=== PATIENT | female | born 1980 | race Caucasian/White ===

== ENCOUNTER → 2016-06-19 | Day surgery (SDC) | payer OTHER ==
[~2016-06-19] VITALS: Ht 154.9 cm; Wt 82.2 kg
[~2016-06-19] MED LIST: ACETAMINOPHEN 1000 MG/100 ML VIAL IV SCH; CHLORHEXIDINE GLUCONATE 2 % 1 PACK (2 CLOTHS) TOPICAL PRN; DEXAMETHASONE SOD PHOS 4 MG/ML VIAL ONE; DICLOFENAC SODIUM 37.5 MG/ML VIAL IV PUSH ONE; FAMOTIDINE 20 MG/2 ML VIAL ONE; INSULIN HUMAN REGULAR 1,000 UNITS/10 ML VIAL SQ PRN; KETOROLAC TROMETHAMINE 60 MG/2 ML (IM) VIAL IM ONE; LACTATED RINGER'S 1000 ML IV PRN; METOCLOPRAMIDE HCL 10 MG/2 ML VIAL IV PRN; METOCLOPRAMIDE HCL 10 MG/2 ML VIAL ONE; METOPROLOL TARTRATE 25 MG TAB PO PRN; MIDAZOLAM HCL 2 MG/2 ML VIAL ONE; ONDANSETRON HCL 4 MG/2 ML VIAL IV PUSH ONE; OXYTOCIN 10 UNIT/ML AMP ONE; POVIDONE IODINE 5% (ANTISEPSIS KIT) 4 APPLICATIONS EACH NARE PRN; PROPOFOL 200 MG/20 ML AMP IV ONE; SODIUM CHLORID 0.9% 500 ML IV PRN; ceFAZolin 1,000 MG/NS 100 ML IV SCH; oxyCODONE/ACETAMINOPHEN 10 MG/325 MG TAB PO PRN
[2016-06-19 05:58] VITALS: BP 122/76; PULSE 67; RESP 18; TEMP 98.5; O2SAT 100
--- NOTE | 2016-06-19 06:29 | MH ---
cc: HILARIO MEEKS DATE OF ADMISSION: 06/19/16 06/19/2016 ADMISSION DIAGNOSIS Spontaneous 7-8 weeks gestation. HISTORY OF PRESENT ILLNESS The patient is a 36-year-old female para 1-0-1-1 with LMP of 04/13/16. She has had intermittent bleeding ranging from mild to moderate flow and beta titers have risen slowly. Ultrasound done on 06/11/2016 showed a viable at 6 weeks and 4 days. She did have intermittent bleeding. Follow-up scan on 06/18/2016 showed demise measuring 6-7 weeks. She is now admitted for D&C. PAST MEDICAL HISTORY/PAST SURGERIES 1. D&C for spontaneous , 2. Laparoscopy followed by laparotomy with removal of a right ovarian dermoid on 08/13/2016 MEDICATIONS Vitamins. ALLERGIES None. TRANSFUSIONS None. OBSTETRICAL HISTORY One vaginal delivery in 2002, male. Spontaneous 2016. 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 Alcohol, tobacco and drugs none. She is . FAMILY HISTORY Noncontributory PHYSICAL EXAMINATION GENERAL: Well-nourished well-developed female. VITAL SIGNS: Stable. HEENT: Exam is normal. CHEST: Clear. HEART: Regular rate. BREASTS: Symmetrical. ABDOMEN: Benign. PELVIC: Normal external genitalia and BUS. Vagina is normal. Cervix normal. Uterus is about 7-8 weeks' size. Adnexa nonpalpable. ASSESSMENT As above. PLAN She is now admitted for Dilation and curettage. While in the office, I explained the procedures, the risks and complications. The patient would like to proceed. MD DAGMAR Crain/ /9:10 PM /6:27 AM
[2016-06-19 08:25] VITALS: BP 109/58; PULSE 62; RESP 18; O2SAT 99
--- NOTE | 2016-06-19 13:55 | MP ---
cc: HILARIO MEEKS DATE OF SURGERY: 06/19/2016 PREOPERATIVE DIAGNOSIS: Spontaneous 8 weeks gestation. POSTOPERATIVE DIAGNOSIS: Spontaneous 8 weeks gestation plus a large endocervical polyp. OPERATION: 1. Suction and sharp D&C. 2. Removal of endocervical polyp. SURGEON: Hilario Meeks MD. ANESTHESIA: General LMA. ESTIMATED BLOOD LOSS: About 200 cc. FLUIDS: 0.5 liter of crystalloid. DESCRIPTION OF THE PROCEDURE IN DETAIL / OBJECTIVE FINDINGS: Following the induction of adequate general LMA anesthesia, the patient was prepped and draped supine on the operating table in the dorsal lithotomy position in the usual sterile fashion with the bladder being drained by in and out catheterization. Examination under anesthesia revealed an eight week sized anterior uterus. A heavy weighted speculum was placed in the posterior fornix of the vagina. The anterior lip of the cervix was grasped with a single-tooth tenaculum. There were to large, about 2 cm, endocervical polyps protruding through the os. The cervix and uterus were sounded to 10 cm. The cervix was dilated to a #20 Hanks dilator easily. A #8 and then #10 suction curette were passed to remove tissue. The cavity was then curetted with a medium sharp curette and the suction cannula was passed again to pickling operator the debris. The large polyps were sent separate after removal with ring forceps for permanent study and the POC material was sent for permanent and for chromosomes. The surgical tenaculum sites were now sutured with 2-0 chromic. All the instruments were removed. The uterus was 6 weeks size. All counts were correct. The patient was taken out of [facility]. She was awake and taken to the recovery room in good condition. MD DAGMAR Crain/[place] /7:21 AM /1:47 PM GABO
== END | disposition home or self-care (01) ==
LOC: HSDC 05:19
PROVIDERS: ATTEND Obstetrics & Gynecology
DX: O03.4 Incomplete spontaneous abortion without complication (principal); N84.1 Polyp of cervix uteri
CPT/HCPCS: 01965; 59812; 88305; J0131; J0690; J1100; J1885; J2250; J2405; J2590; J3010; J7120; 88307; J1130; J2765